=== PATIENT | male | born 1960 | race Caucasian/White ===

== ENCOUNTER → 2019-04-26 | Outpatient (CLI) | payer BC | LOC: SJCVCIMAG 08:42 | DX: I25.10 Atherosclerotic heart disease of native coronary artery without angina pectoris (principal); I10 Essential (primary) hypertension; E78.5 Hyperlipidemia, unspecified; I25.2 Old myocardial infarction; Z95.5 Presence of coronary angioplasty implant and graft; Z87.891 Personal history of nicotine dependence ==

== ENCOUNTER → 2019-06-14 | Outpatient (CLI) | payer BC, OTHER ==
[~2019-06-14] VITALS: Ht 182.9 cm; Wt 90.7 kg
[~2019-06-14] MED LIST: AMITRIPTYLINE H10 M3 PO; ASA81BEC PO; CRESTOR40 MG PO; DILTIAZEM ER120 MG PO; LORCET 5-325 M1 EACH PO; NEURONTIN 300300 M1 PO; TOPROL XL100 MG PO; ZESTRIL40 MG PO
[2019-06-14 14:42] VITALS: BP 123/73
--- NOTE | 2019-06-14 14:57 | NUR ---
Pain Clinic Assessment: 1. History of Osteoarthritis: NECK BACK History of Rheumatoid Arthritis: Not Applicable 2. Height: 6 ft. 0 in. 182.9 cm. Weight: 200.0 lb. oz. 90.720 kg. Patient's BMI: 27.1 3. Vital Signs: BP: 123/73 Pulse: 55 Resp: 16 Temp: 02 Sat: 97 ECG Mon: 4. Pain Intensity: 6 5. Fall Risk: Dizziness: N Needs help standing or walking: N Fallen in the last 3 months: N Fall risk comments: 6. Patient on Blood Thinner: None 7. History of Hypertension: Y 8. Opioid Therapy greater than 6 weeks: N Opiate Contract Signed: 9. Risk Assessment Tool Provided: 6-MOD 10. Functional Assessment Tool: 11. Recreational Drug Use: Never Drug Type: Tobacco Use: Former Smoker Tobacco Type: Amount or Packs/day: How Many Years: Alcohol Use: Past use Frequency: Quant:
--- NOTE | 2019-06-28 07:58 | HPC ---
[facility] [place] [address] PAIN MANAGEMENT CONSULTATION Name: ROBERTO POWERS Room #: REG SJ Marti.#: [id number] Admission: 06/14/19 Attend Phys: Roz Wong MD Discharge: Date of : 60 Report #: [id number] THIS REPORT FOR: cc: Osvaldo Oglesby MD, Rene P. MD Brown,Roz Sanders MD ~ CC: Roz Oglesby DATE OF SERVICE: 06/14/2019 CHIEF COMPLAINT: Right-sided neck pain down into the fingers. HISTORY: The patient is a 58-year-old gentleman who has been referred to the pain clinic for evaluation of neck, shoulder, and arm pain. He noticed onset of pain and discomfort about a week ago. He states that he woke up with a "crick" in his neck. It has progressed down into his right shoulder, arm and now his fingers are affected. He describes a constant numbness, tingling, and stabbing discomfort. He rates the intensity as a 6/10. It involves his ring and small finger. Lying down in bed and changing position is not as problematic as when he is standing up and moving. He has not had surgery. ALLERGIES: SULFA, ANTIBIOTICS. CURRENT MEDICATIONS: Xanax 0.5 mg as needed p.r.n., Diprolene cream topically rash. Lisinopril 40 mg, lovastatin 40 mg, Medrol Dosepak has been used, metoprolol 100 mg b.i.d., multivitamins, Crestor 40 mg, Cialis 5 mg p.r.n. PAST MEDICAL HISTORY: Coronary artery disease in 1998, PTCA stent in right coronary artery, colonoscopy, diverticuli, hypertension, prurigo nodularis right side posterior neck. PAST SURGICAL HISTORY: Stent placement, right coronary artery in 1998. 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 He is working at this juncture. REVIEW OF SYSTEMS: Indicate generally good health, palpitations, fatigue, weakness, varicose veins, numbness and tingling sensation in the arm. PAIN CLINIC ASSESSMENT AND PQRS: 1. History of osteoarthritis. The patient has some neck and back. 2. The patient is not being treated for rheumatoid arthritis. 3. Height 6 feet 0, weight 200 pounds, BMI is 27.1. 4. Vital Signs: Blood pressure 123/73, pulse 55, respiratory rate 16, room air saturation is 97%. [facility] [address] [place] [address] PAIN MANAGEMENT CONSULTATION Name: ROBERTO POWERS Room #: REG [facility].#: [id number] Admission: 06/14/19 Attend Phys: Roz Wong MD Discharge: Date of : 60 Report #: [id number] 5. Pain intensity /10. 6. Fall history: The patient has not fallen in the last 3 months. 7. Blood thinner. The patient is not on a blood thinning medication. 8. Hypertension. The patient is being treated for hypertension. 9. Opioids. The patient is not on a regular opioid regimen. 10. Risk assessment tool, moderate for opioid use. 11. Functional assessment tool . 12. Recreational drug use. The patient denies. 13. Tobacco: The patient is a former smoker. 14. Alcohol. The patient uses alcoholic beverages on occasion. PHYSICAL EXAMINATION: GENERAL: The patient is a well-developed, well-nourished white male. Appears his stated age. He is alert and oriented x 3. His affect is appropriate. Speech is fluent. HEENT: Normocephalic, atraumatic. Extraocular eye muscles intact. Sclerae nonicteric. Mucous membranes are moist. NECK: Without adenopathy or JVD. The patient has pain and discomfort in the right side in the right shoulder. Notes pain that is radiating down into his right elbow involving the arm and involving the ring and little finger. HEART: Regular rate. ABDOMEN: Nontender. MUSCULOSKELETAL: Lower extremity muscle strength is judged to be 5/5 for the major muscle groups in the lower extremity. LABORATORY DATA: 1. MRI of the cervical spine dated 06/13/2019, C3-C4 small disc osteophyte complex and mild uncovertebral and facet arthropathy. No spinal canal stenosis. Moderate right and mild left neural foraminal stenosis. Thecal sac 1 cm AP. 2. C4, C5, minimal disc osteophyte complex and mild uncovertebral and facet arthropathy. No spinal canal stenosis. Mild bilateral neural foraminal stenosis. Thecal sac 1.2 cm AP. 3. C5-C6, minimal disc osteophyte complex and mild uncovertebral and facet arthropathy. No spinal canal stenosis. Moderate to severe right and mild left neural foraminal stenosis. Thecal sac 1.1 cm. 4. C6-C7, small disc osteophyte complex, small right paracentral disk extrusion with caudal migration, mild uncovertebral and facet arthropathy, ligamentum flavum thickening. Extruded disc measures approximately 0.4 x 0.4 x 0.7 cm. Flattening of the ventral thecal sac without significant spinal canal stenosis. Severe right and [id number] left neural foraminal stenosis. Thecal sac 1 cm AP. 5. C7-T1, mild facet arthropathy. No spinal canal or neural foraminal stenosis. Thecal sac is 1.2 cm AP. 6. Mild bone marrow edema in the right facet at C5 with fluid in the right C4/C5 facet joint. Findings are favored to be degenerative. Septic facet arthritis with osteomyelitis is an additional consideration. [facility] [address] [place] [address] PAIN MANAGEMENT CONSULTATION Name: PRIYAROBERTO Refugio Room #: REG Evin Porras#: [id number] Admission: 06/14/19 Attend Phys: Roz Wong MD Discharge: Date of : 60 Report #: [id number] The patient has not undergone physical therapy. He has not had chiropractic treatment at this juncture. He fell about 2 years ago on his left side and shoulder. He underwent rehab and that pain on the left side, resolved. IMPRESSION: 1. Cervical radiculopathy with pain radiating down the right shoulder, arm involving the ring and index finger. 2. Hypertension. 3. Hypercholesterolemia. 4. Dyslipidemia 5. Prurigo nodularis. RECOMMENDATIONS: We discussed treatment options with the patient. A model was used to indicate the area of probable pathology. We went over his MRI line by line. He will try a conservative approach. He did take a Medrol Dosepak and still has had pain and discomfort. We will have the patient try gabapentin as well as Elavil. The Elavil to be taken at bedtime. Oftentimes, this could be helpful with pain and also improving sleep. The patient will try the gabapentin and see whether or not this is helpful with decreasing some of the nerve root irritation. The patient will return to the Pain Clinic with his MRI. We will review it with him. Possibility of a cervical epidural steroid injection is an option. We would like to thank you for letting us participate in his care. We hope he continues to improve. <ELECTRONICALLY SIGNED> By: Roz Wong MD 06/28/19 [id number] Roz Wong MD /[facility]
== END ==
LOC: PAIN 14:08
DX: M54.12 Radiculopathy, cervical region (principal); I10 Essential (primary) hypertension; E78.00 Pure hypercholesterolemia, unspecified; E78.5 Hyperlipidemia, unspecified; L28.1 Prurigo nodularis; F11.20 Opioid dependence, uncomplicated; Z87.891 Personal history of nicotine dependence; Z88.2 Allergy status to sulfonamides; Z88.8 Allergy status to other drugs, medicaments and biological substances

== ENCOUNTER → 2019-09-22 | Outpatient (CLI) | payer BC, OTHER | LOC: LAB 15:05 | PROVIDERS: ATTEND Family Medicine | DX: Z20.828 Contact with and (suspected) exposure to other viral communicable diseases (principal); R05 Cough ==